=== PATIENT | male | born 1995 | race Caucasian/White ===

== ENCOUNTER 2017-11-08 08:59 | Emergency (ER) | payer SELFPAY ==
[2017-11-08] MEDS ORDERED: Sodium Chloride 0.9% 1,000 ML IV ONE (09:10)
[2017-11-08] MEDS ORDERED: Glucagon,Human Recombinant 1 MG Vial IVPUSH ONE ×2 (09:10→09:54)
[2017-11-08] MEDS ORDERED: Sodium Chloride 0.9% 10 ML Syringe FLUSH PRN (09:10)
[2017-11-08] MEDS ORDERED: Sodium Chloride 0.9% 2.5 ML Syringe FLUSH PRN (09:10)
--- NOTE | 2017-11-08 09:13 | EDM.PDOC ---
ED HPI GENERAL MEDICAL PROBLEM - General Chief Complaint: Gastrointestinal Problem Stated Complaint: FOOD STUCK IN THROAT Time Seen by Provider: 11/08/17 09:10 - History of Present Illness INITIAL COMMENTS - FREE TEXT/NARRATIVE: HISTORY AND PHYSICAL: History of present illness: Patient 22-year-old white male presents with a concern of esophageal food bolus in the form of chicken he's had this happen multiple times in the past has had esophageal dilatation the last episode was approximately 2 years prior Review of systems: As per history of present illness and below otherwise all systems reviewed and negative. Past medical history: As per history of present illness and as reviewed below otherwise noncontributory. Surgical history: As per history of present illness and as reviewed below otherwise noncontributory. Social history: No reported history of drug or alcohol abuse. Family history: As per history of present illness and as reviewed below otherwise noncontributory. Physical exam: HEENT: Atraumatic, normocephalic, pupils reactive, negative for conjunctival pallor or scleral icterus, mucous membranes moist, throat clear, neck supple, nontender, trachea midline. Lungs: Clear to auscultation, breath sounds equal bilaterally, chest nontender. Heart: S1S2, regular, negative for clicks, rubs, or JVD. Abdomen: Soft, nondistended, nontender. Negative for masses or hepatosplenomegaly. Negative for costovertebral tenderness. Pelvis: Stable nontender. Genitourinary: Deferred. Rectal: Deferred. Extremities: Atraumatic, negative for cords or calf pain. Neurovascular unremarkable. Neuro: Awake, alert, oriented. Cranial nerves II through XII unremarkable. Cerebellum unremarkable. Motor and sensory unremarkable throughout. Exam nonfocal. Diagnostics: None Therapeutics: Saline 1 L bolus glucagon 1 mg IV Impression: #1 esophageal food bolus Definitive disposition and diagnosis as appropriate pending reevaluation and review of above. - Related Data Allergies Allergy/AdvReac Type Severity Reaction Status Date / Time No Known Allergies Allergy Verified 11/08/17 09:10 Home Meds: Home Meds Pantoprazole Sodium [Protonix] 40 mg PO ACBREAKFAST #30 tablet. 11/08/17 [Rx] ED ROS GENERAL - Review of Systems Review Of Systems: ROS reveals no pertinent complaints other than HPI. ED EXAM, GENERAL - Physical Exam Exam: See Below (See dictation) Course - Vital Signs Last Recorded V/S: Last Vital Signs Temp 36.3 C 11/08/17 13:21 Pulse 87 11/08/17 13:46 Resp 16 11/08/17 14:50 BP 109/61 11/08/17 13:46 Pulse Ox 97 11/08/17 13:46 - Orders/Labs/Meds Meds: Medications Discontinued Medications Generic Name Dose Route Start Last Admin Trade Name Freq PRN Reason Stop Dose Admin Dexamethasone Confirm 11/08/17 10:34 Dexamethasone Administered 11/08/17 10:35 Dose 20 mg .ROUTE .STK-MED ONE Fentanyl Confirm 11/08/17 10:27 Sublimaze Administered 11/08/17 10:28 Dose 100 mcg .ROUTE .STK-MED ONE Glucagon 1 mg 11/08/17 09:10 11/08/17 09:19 Glucagen IVPUSH 11/08/17 09:11 1 mg ONETIME ONE Administration Glucagon 1 mg 11/08/17 09:54 11/08/17 10:07 Glucagen IVPUSH 11/08/17 09:55 Not Given ONETIME ONE Sodium Chloride 1,000 mls @ 999 mls/hr 11/08/17 09:10 11/08/17 09:19 Normal Saline IV 11/08/17 10:10 999 mls/hr STAT ONE Administration Lidocaine Confirm 11/08/17 10:27 Xylocaine-Mpf 2% Administered 11/08/17 10:28 Dose 5 ml .ROUTE .STK-MED ONE Midazolam HCl Confirm 11/08/17 10:27 Versed 1 Mg/Ml Administered 11/08/17 10:28 Dose 2 mg .ROUTE .STK-MED ONE Ondansetron HCl 4 mg 11/08/17 09:27 11/08/17 09:34 Zofran IVPUSH 11/08/17 09:28 4 mg ONETIME ONE Administration Ondansetron HCl Confirm 11/08/17 10:28 Zofran Administered 11/08/17 10:29 Dose 4 mg .ROUTE .STK-MED ONE Propofol Confirm 11/08/17 10:27 Diprivan 20 Ml Administered 11/08/17 10:28 Dose 200 mg .ROUTE .STK-MED ONE Sodium Chloride 10 ml 11/08/17 09:10 11/08/17 09:19 Saline Flush FLUSH 10 ml ASDIRECTED PRN Administration Keep Vein Open Sodium Chloride 2.5 ml 11/08/17 09:10 11/08/17 09:19 Saline Flush FLUSH 2.5 ml ASDIRECTED PRN Administration Keep Vein Open Succinylcholine Chloride Confirm 11/08/17 10:28 Quelicin Administered 11/08/17 10:29 Dose 200 mg .ROUTE .STK-MED ONE Departure - Departure Time of Disposition: 13:00 Disposition: Still A Patient 30 Condition: Good Clinical Impression: Esophageal obstruction due to food impaction - Discharge Information Prescriptions: Pantoprazole Sodium [Protonix] 40 mg PO ACBREAKFAST #30 tablet. Instructions: Pantoprazole tablets, Esophagogastroduodenoscopy, Care After Referrals: Daxa Moe MD [Physician] - Forms: ED Department Discharge Care Plan Goals: Please call the building and make an appointment to see / Payal on Friday at [phone].
[2017-11-08] MEDS ORDERED: Ondansetron 4 MG/2 ML SDV IVPUSH ONE (09:27)
--- NOTE | 2017-11-08 10:04 | PCM.PREANE ---
Preanesthetic Assessment - Anesthesia/Transfusion/Family Hx Anesthesia History: Prior Anesthesia Without Reaction Family History of Anesthesia Reaction: No Transfusion History: No Prior Transfusion(s) - Review of Systems General: No Symptoms Pulmonary: No Symptoms Cardiovascular: No Symptoms Gastrointestinal: No Symptoms Neurological: No Symptoms Other: Reports: None - Physical Assessment NPO Status Date: 11/08/17 NPO Status Time: 06:00 O2 Sat by Pulse Oximetry: 99 Respiratory Rate: 18 Vital Signs: Last Vital Signs Temp 36.8 C 11/08/17 09:08 Pulse 86 11/08/17 09:08 Resp 18 11/08/17 09:08 BP 120/75 11/08/17 09:08 Pulse Ox 99 11/08/17 09:08 Height: 1.78 m Weight: 72.6 kg ASA Class: 2E Mental Status: Alert & Oriented x3 Airway Class: Mallampati = 2 Dentition: Reports: Normal Dentition Thyro-Mental Finger Breadths: 3 Mouth Opening Finger Breadths: 3 ROM/Head Extension: Full Lungs: Clear to Auscultation, Normal Respiratory Effort Cardiovascular: Regular Rate, Regular Rhythm - Allergies Allergies/Adverse Reactions: Allergies Allergy/AdvReac Type Severity Reaction Status Date / Time No Known Allergies Allergy Verified 11/08/17 09:10 - Acknowledgements Anesthesia Type Planned: General Anesthesia Pt an Appropriate Candidate for the Planned Anesthesia: Yes Alternatives and Risks of Anesthesia Discussed w Pt/Guardian: Yes Pt/Guardian Understands and Agrees with Anesthesia Plan: Yes PreAnesthesia Questionnaire Gastrointestinal History: Reports: Other (See Below) Other Gastrointestinal History: esophageal stricture - Past Surgical History HEENT Surgical History: Reports: Tonsillectomy - SUBSTANCE USE Smoking Status *Q: Current Every Day Smoker Tobacco Use Within Last Twelve Months: Cigarettes Days Per Week of Alcohol Use: 7 Number of Drinks Per Day: 12 Total Drinks Per Week: 84 Date of Last Drink: 11/07/17 Time of Last Drink: 22:00 Recreational Drug Use History: No - HOME MEDS Home Medications: Home Meds . [No Known Home Meds] 11/08/17 [History] - CURRENT (IN HOUSE) MEDS Current Meds: Current Medications Sodium Chloride (Normal Saline) 1,000 mls @ 999 mls/hr IV STAT ONE Stop: 11/08/17 10:10 Last Admin: 11/08/17 09:19 Dose: 999 mls/hr Sodium Chloride (Saline Flush) 10 ml FLUSH ASDIRECTED PRN PRN Reason: Keep Vein Open Last Admin: 11/08/17 09:19 Dose: 10 ml Sodium Chloride (Saline Flush) 2.5 ml FLUSH ASDIRECTED PRN PRN Reason: Keep Vein Open Last Admin: 11/08/17 09:19 Dose: 2.5 ml Discontinued Medications Glucagon (Glucagen) 1 mg IVPUSH ONETIME ONE Stop: 11/08/17 09:11 Last Admin: 11/08/17 09:19 Dose: 1 mg Glucagon (Glucagen) 1 mg IVPUSH ONETIME ONE Stop: 11/08/17 09:55 Ondansetron HCl (Zofran) 4 mg IVPUSH ONETIME ONE Stop: 11/08/17 09:28 Last Admin: 11/08/17 09:34 Dose: 4 mg
[2017-11-08] MEDS ORDERED: Lidocaine 2% 5 ML SDV ONE (10:27)
[2017-11-08] MEDS ORDERED: fentaNYL 100 MCG/2 ML SDV ONE (10:27)
[2017-11-08] MEDS ORDERED: Midazolam 1 MG/ML 2 ML SDV ONE (10:27)
[2017-11-08] MEDS ORDERED: Propofol 200 MG/20 ML SDV ONE (10:27)
[2017-11-08] MEDS ORDERED: Ondansetron 4 MG/2 ML SDV ONE (10:28)
[2017-11-08] MEDS ORDERED: Succinylcholine 200 MG/10 ML MDV ONE (10:28)
[2017-11-08] MEDS ORDERED: Dexamethasone 4 MG/ML 5 ML MDV ONE (10:34)
--- NOTE | 2017-11-08 13:08 | PCM.OPNOTE ---
- General Post-Op/Procedure Note Date of Surgery/Procedure: 11/08/17 Operative Procedure(s): EGD with disimpaction of proximal esophageal food bolus Findings: impacted food bolus in proximal esophagus Pre Op Diagnosis: impacted food bolus Post-Op Diagnosis: impacted food bolus in proximal esophagus Anesthesia Technique: General ET Tube Primary Surgeon: Daxa Moe Early Childhood Aide Classroom: Elio Kendall EBL in mLs: 0 Complications: None Condition: Good
--- NOTE | 2017-11-08 13:36 | PCM.POSTAN ---
POST ANESTHESIA ASSESSMENT - MENTAL STATUS Mental Status: Alert, Oriented - RESPIRATORY Respiratory Status: Respiratory Rate WNL, Airway Patent, O2 Saturation Stable - CARDIOVASCULAR CV Status: Pulse Rate WNL, Blood Pressure Stable - GASTROINTESTINAL GI Status: No Symptoms - POST OP HYDRATION Hydration Status: Adequate & Stable
--- NOTE | 2017-11-08 14:49 | OR ---
SURGEON: DEMARCUS MORALES MD DATE OF PROCEDURE: 11/08/2017 PREOPERATIVE DIAGNOSES: 1. Esophageal obstruction secondary to food bolus. 2. History of the eosinophilic esophagitis. POSTOPERATIVE DIAGNOSES: 1. Esophageal obstruction secondary to food bolus. 2. History of the eosinophilic esophagitis. PROCEDURE PERFORMED: EGD with food bolus disimpaction. INTEGRITY ENGINEER: Dr. Eilo Kendall. ANESTHESIA: General endotracheal anesthesia. INSTRUMENT USED: Olympus endoscope. EXTENT OF EXAM: To the second portion of the duodenum. COMPLICATIONS: None. INDICATIONS: The patient is a 22-year-old male, who has a known history of eosinophilic esophagitis. He has had multiple food bolus impactions and multiple EGDs, none of which were done here. The patient was eating chicken last evening when he felt a piece obstruct. He presented to the ER. The patient and I discussed the need for a diagnostic EGD with food bolus disimpaction. We discussed the procedure as well as expected perioperative course. We discussed the risks including bleeding or perforation. The patient verbalized understanding and wishes to proceed. PROCEDURE IN DETAIL: The patient was brought into the OR and placed on the OR table in supine position. A time-out was completed verifying the patient's name, age, date of , allergies, and procedure to be performed. General endotracheal anesthesia was induced. A bite block was placed in the patient's mouth. A well lubricated endoscope was placed in the patient's mouth and advanced under direct visualization into the esophagus. At approximately 25 cm from the teeth, a large food bolus was noted. This was broken apart using a tri-prong grasper and cold biopsy forceps. Once I had marsupialized it well enough, I was able to get the tri-prong grasper around it and pull it out through the mouth. The scope was then placed back into the esophagus and there was a small amount of food still left behind. These were able to be flushed and pushed into the stomach. The scope was advanced all the way to the second portion of duodenum. This appeared slightly inflamed, but with no overt ulceration or bleeding. A photograph was taken of the second portion of duodenum. The scope was brought into the stomach and a photograph taken of the GE junction and the pylorus, both of which appeared normal. There was no pathology in the gastric mucosa. The scope was then brought into the esophagus. There appeared to be some narrowing of the GE junction as well as at the area of the obstruction. The area of obstruction did not appear to be inflamed or perforated. The scope was then removed from the patient. The procedure was terminated. The patient tolerated the procedure well and was taken to PACU in stable condition. ENDOSCOPIC DIAGNOSES: 1. Esophageal obstruction secondary to food bolus. 2. History of the eosinophilic esophagitis. RECOMMENDATIONS: Follow up with his GI physician at home. The patient should be on a PPI for the next month. TEODORO PEARCE /[id number] MTDLinnea
--- NOTE | 2017-11-08 14:50 | PCM48HPAN ---
Post Anesthesia Note - EVALUATION WITHIN 48HRS OF ANESTHETIC Vital Signs in Normal Range: Yes Patient Participated in Evaluation: Yes Respiratory Function Stable: Yes Airway Patent: Yes Cardiovascular Function Stable: Yes Hydration Status Stable: Yes Pain Control Satisfactory: Yes Nausea and Vomiting Control Satisfactory: Yes Mental Status Recovered: Yes Resp Rate: 16
== END 2017-11-08 12:29 | disposition still patient (30) ==
LOC: MW.ED 08:59
DX: T18.128A Food in esophagus causing other injury, initial encounter (principal)
CPT/HCPCS: 43247; 96361; 96374; 96375; 99284; J0330; J1100; J1610; J2250; J2405; J3010; J7040; 00732; 99282; J2704